=== PATIENT | female | born 1995 | race American Indian/Alaskan Native ===

== ENCOUNTER 2019-04-17 15:52 | Emergency (ER) | payer MEDICAID, OTHER ==
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
[2019-04-17 17:13] LABS: Basophils # (Auto) 0.1 K/mm3 (0.0-0.1); Basophils % (Auto) 1.1 % (0.0-1.8); Eosinophils # (Auto) 0.4 K/mm3 (0.0-0.4); Eosinophils % (Auto) 5.2 % (0.0-4.3); Hematocrit 42.6 % (30.3-42.9); Hemoglobin 14.3 gm/dl (10.1-14.3); Lymphocytes % (Auto) 36.9 % (13.4-35.0); Mean Corpuscular HGB Conc 34 % (30-34); Mean Corpuscular Volume 93 fl (79-97); Monocytes # (Auto) 0.6 K/mm3 (0.0-0.8); Monocytes % (Auto) 7.4 % (0.0-7.3); Platelet Count 374 K/mm3 (140-440); Red Blood Count 4.58 M/mm3 (3.65-5.03); Red Cell Distribution Width 13.3 % (13.2-15.2)
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
[2019-04-17 17:22] LABS: BUN/Creatinine Ratio 10; Blood Urea Nitrogen 6 mg/dL (7-17); Calcium 9.7 mg/dL (8.4-10.2); Hemolysis Index 8
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
[2019-04-17 20:01] VITALS: BP 109/70
== END 2019-04-17 20:00 | disposition home or self-care (01) ==
LOC: ED 15:52
DX: S46.911A Strain of unspecified muscle, fascia and tendon at shoulder and upper arm level, right arm, initial encounter (principal); S20.219A Contusion of unspecified front wall of thorax, initial encounter; F17.200 Nicotine dependence, unspecified, uncomplicated; Z91.018 Allergy to other foods; Z88.8 Allergy status to other drugs, medicaments and biological substances; Z86.69 Personal history of other diseases of the nervous system and sense organs; Z98.890 Other specified postprocedural states; Z79.899 Other long term (current) drug therapy; V49.59XA Passenger injured in collision with other motor vehicles in traffic accident, initial encounter; Y93.89 Activity, other specified; Y92.410 Unspecified street and highway as the place of occurrence of the external cause; Y99.8 Other external cause status
CPT/HCPCS: 36415; 71046; 71120; 80048; 84703; 85025

== ENCOUNTER 2020-10-10 05:25 | Emergency (ER) | payer MEDICAID, OTHER ==
[2020-10-10] MEDS ORDERED: KETOROLAC 30 MG/1 ML INJ IV ONE (06:24)
[2020-10-10 07:06] LABS: Basophils # (Auto) 0.1 K/mm3 (0.0-0.1); Basophils % (Auto) 0.9 % (0.0-1.8); Eosinophils # (Auto) 0.4 K/mm3 (0.0-0.4); Eosinophils % (Auto) 6.7 % (0.0-4.3); Hematocrit 41.2 % (30.3-42.9); Hemoglobin 14.1 gm/dl (10.1-14.3); Lymphocytes # (Auto) 2.9 K/mm3 (1.2-5.4); Lymphocytes % (Auto) 48.5 % (13.4-35.0); Mean Corpuscular HGB Conc 34 % (30-34); Mean Corpuscular Volume 92 fl (79-97); Monocytes # (Auto) 0.4 K/mm3 (0.0-0.8); Monocytes % (Auto) 6.7 % (0.0-7.3); Platelet Count 376 K/mm3 (140-440); Red Blood Count 4.46 M/mm3 (3.65-5.03); Red Cell Distribution Width 12.8 % (13.2-15.2)
[2020-10-10 07:38] VITALS: BP 124/83
[2020-10-10 07:40] LABS: Blood Urea Nitrogen 6 mg/dL (7-17); Calcium 9.2 mg/dL (8.4-10.2); Hemolysis Index 14
[2020-10-10 07:55] LABS: BUN/Creatinine Ratio 12
--- NOTE | 2020-10-10 09:18 | Cat Scan Report ---
CT NECK WITH CONTRAST HISTORY: Right-sided neck swelling COMPARISON: None. TECHNIQUE: Routine CT of the neck is performed following intravenous contrast. All CT scans at this [facility] are performed using CT dose reduction for ALARA by means of automated exposure control CONTRAST: 100 mL Omnipaque 300 FINDINGS: Artifacts related to breathing and motion obscuring the details in the oral cavity area. Skull Base: No significant abnormality. Parotid, Carotid, Retropharyngeal, Prevertebral, Pharyngeal Mucosal, and Physician Anesthesiologist Spaces: Faucial t onsils are prominent; no evidence of the inflammatory changes; airway is not compromised and no oral cavity Larynx: Artifacts obscuring the details Airway: Patent and without significant abnormality. Lymphatics: No lymphadenopathy. Vasculature: No significant abnormality. Osseous Structures: No significant abnormality Additional findings: 5 mm sized low attenuation lesion in the right thyroid lobe; nonspecific IMPRESSION: Limited CT scan due to artifacts from breathing and motion Airway is not compromised Incidental thyroid nodule measuring 0.5 cm located in right lobe. See below for follow-up recommendat ion. Nonpalpable nodules detected on US or other anatomic imaging studies are termed incidentally discover ed nodules or incidentalomas. Nonpalpable nodules have the same risk of malignancy as palpable nodule s with the same size. Generally, only nodules >1 cm should be evaluated, since they have a greater po tential to be clinically significant cancers. (FABRICE, 2009). Follow up for incidental thyroid nodules <1 cm is not recommended. Signer Name: Kain Willams MD Signed: 10/10/2020 9:12 AM Workstation Name: [id number]
--- NOTE | 2020-10-10 09:38 | Emergency Department Report ---
ED Neck Pain/Injury HPI - General Chief Complaint: Neck Pain/Injury Stated Complaint: LUMP IN NECK Time Seen by Provider: 10/10/20 06:24 Mode of arrival: Ambulatory Limitations: No Limitations - History of Present Illness Initial Comments: Patient is a 25-year-old F Tog[place] female who has had pain in the right neck for approximately a month. She was on prescription of amoxicillin previously given by her primary care physician. States she has a area of swelling to the right upper neck. Denies any pain palpation over teeth. She does have pain with turning her neck bending up and down. Denies fever or difficulty swallowing nausea vomiting cough cold or congestion. Severity scale (0 -10): 6 Quality: aching Consistency: constant Context: other (Denies any direct trauma or heavy lifting) - Related Data Previous Rx's Medication Instructions Recorded Last Taken Type Amoxicillin/K Clav Tab [Augmentin 1 tab PO Q12HR 14 Days tab 06/05/18 Unknown Rx 875 mg] Ibuprofen [Motrin] 600 mg PO Q8H PRN #30 tablet 06/05/18 Unknown Rx Pseudoephedrine HCl [Sudafed 12 120 mg PO BID #28 tablet.er 06/05/18 Unknown Rx Hour] Clindamycin [Clindamycin CAP] 300 mg PO Q8H #21 cap 10/10/20 Unknown Rx Ketorolac [Toradol] 10 mg PO Q6H PRN #14 tablet 10/10/20 Unknown Rx methOCARBAMOL [Robaxin TAB] 500 mg PO Q6H PRN #14 tablet 10/10/20 Unknown Rx traMADoL [Ultram] 50 mg PO Q6HR PRN #12 tablet 10/10/20 Unknown Rx Allergies Allergy/AdvReac Type Severity Reaction Status Date / Time strawberry Allergy Hives Verified 10/10/20 05:46 gabapentin AdvReac Vomiting Verified 10/10/20 05:46 methylprednisolone AdvReac Vomiting Verified 10/10/20 05:46 [From Solu-Medrol] ED Review of Systems ROS: Stated complaint: LUMP IN NECK Other details as noted in HPI Comment: All other systems reviewed and negative ED Past Medical Hx - Past Medical History Previous Medical History?: Yes Hx Psychiatric Treatment: Yes (depression, anxiety) Additional medical history: SCOLIOSIS - Surgical History Past Surgical History?: Yes Hx Cholecystectomy: Yes Additional Surgical History: spinal tap - Social History Smoking Status: Never Smoker Substance Use Type: None - Medications Home Medications: Home Medications Medication Instructions Recorded Confirmed Last Taken Type Amoxicillin/K Clav Tab [Augmentin 1 tab PO Q12HR 14 Days tab 06/05/18 Unknown Rx 875 mg] Ibuprofen [Motrin] 600 mg PO Q8H PRN #30 tablet 06/05/18 Unknown Rx Pseudoephedrine HCl [Sudafed 12 120 mg PO BID #28 tablet.er 06/05/18 Unknown Rx Hour] Clindamycin [Clindamycin CAP] 300 mg PO Q8H #21 cap 10/10/20 Unknown Rx Ketorolac [Toradol] 10 mg PO Q6H PRN #14 tablet 10/10/20 Unknown Rx methOCARBAMOL [Robaxin TAB] 500 mg PO Q6H PRN #14 tablet 10/10/20 Unknown Rx traMADoL [Ultram] 50 mg PO Q6HR PRN #12 tablet 10/10/20 Unknown Rx ED Physical Exam - General Limitations: No Limitations General appearance: alert, in no apparent distress - Head Head exam: Present: atraumatic, normocephalic - Eye Eye exam: Present: normal appearance, PERRL, EOMI - ENT ENT exam: Present: normal orophraynx, mucous membranes moist - Neck Neck exam: Present: normal inspection - Expanded Neck Exam Expanded 1 - Area of very mild swelling just under the jaw on the right approximately 2 cm distal to the angle of the jaw 2 - Tenderness to palpation of the entire sternocleidomastoid - Respiratory Respiratory exam: Present: normal lung sounds bilaterally. Absent: respiratory distress, wheezes, rales, rhonchi, stridor - Cardiovascular Cardiovascular Exam: Present: regular rate, normal rhythm. Absent: systolic murmur, diastolic murmur, rubs, gallop - GI/Abdominal GI/Abdominal exam: Present: soft, normal bowel sounds - Extremities Exam Extremities exam: Present: normal inspection - Back Exam Back exam: Present: normal inspection - Neurological Exam Neurological exam: Present: alert, oriented X3 - Psychiatric Psychiatric exam: Present: normal affect, normal mood - Skin Skin exam: Present: warm, dry, intact, normal color. Absent: rash ED Course Vital Signs 10/10/20 10/10/20 05:40 07:37 Temperature 98.8 F 98.2 F Pulse Rate 85 76 Respiratory 18 14 Rate Blood Pressure 148/82 124/83 [Left] O2 Sat by Pulse 98 98 Oximetry ED Medical Decision Making - Lab Data Result diagrams: 10/10/20 06:44 10/10/20 06:44 - Radiology Data [facility] [address] [place] [address] Cat Scan Report Signed Patient: JANIE ADAMES MR#: [id number] : 1995 Acct:[id number] Age/Sex: 25 / F ADM Date: 10/10/20 Loc: ED Attending Dr: Ordering Physician: MODESTO DAUGHERTY MD Date of Service: 10/10/20 Procedure(s): CT neck w con Accession Number(s): [id number] cc: MODESTO DAUGHERTY MD CT NECK WITH CONTRAST HISTORY: Right-sided neck swelling COMPARISON: None. TECHNIQUE: Routine CT of the neck is performed following intravenous contrast. All CT scans at this location are performed using CT dose reduction for ALARA by means of automated exposure control CONTRAST: 100 mL Omnipaque 300 FINDINGS: Artifacts related to breathing and motion obscuring the details in the oral cavity area. Skull Base: No significant abnormality. Parotid, Carotid, Retropharyngeal, Prevertebral, Pharyngeal Mucosal, and Paper Tube Grader Spaces: Faucial tonsils are prominent; no evidence of the inflammatory changes; airway is not compromised and no oral cavity Larynx: Artifacts obscuring the details Airway: Patent and without significant abnormality. Lymphatics: No lymphadenopathy. Vasculature: No significant abnormality. Osseous Structures: No significant abnormality Additional findings: 5 mm sized low attenuation lesion in the right thyroid lobe; nonspecific IMPRESSION: Limited CT scan due to artifacts from breathing and motion Airway is not compromised Incidental thyroid nodule measuring 0.5 cm located in right lobe. See below for follow-up recommendation. Nonpalpable nodules detected on US or other anatomic imaging studies are termed incidentally discovered nodules or incidentalomas. Nonpalpable nodules have the same risk of malignancy as palpable nodules with the same size. Generally, only nodules >1 cm should be evaluated, since they have a greater potential to be clinically significant cancers. (FABRICE, 2009). Follow up for incidental thyroid nodules <1 cm is not recommended. Signer Name: Kain Willams MD Signed: 10/10/2020 9:12 AM Workstation Name: [id number] Transcribed By: BS - Medical Decision Making Patient is a 25-year-old F Togolese female has had pain in the right neck anterior for approximately a month. There is a palpable masslike structure very small in the right jaw. This could represent dental abscess with some mild facial cellulitis. Difficult to see the patient is teeth and lower cavities on the CT because of some motion artifact. Patient also has pain with palpation to the entire right sternocleidomastoid. No inflammatory changes on CT. Patient will be referred to oral surgery. She also be given a muscle relaxant and something for pain. Patient has ultrasound of the right neck pending which she can keep this appointment. Patient stable for discharge. Critical care attestation.: If time is entered above; I have spent that time in minutes in the direct care of this critically ill patient, excluding procedure time. ED Disposition Clinical Impression: Neck pain, Dental abscess, Sternocleidomastoid muscle tenderness Disposition: 01 HOME / SELF CARE / HOMELESS Is pt being admited?: No Does the pt Need Aspirin: No Condition: Stable Instructions: Dental Abscess, Musculoskeletal Pain Referrals: DOUGIE ESCOBEDO DDS [Referring] - 3-5 Days MARY BERMAN DDS [Staff Physician] - 3-5 Days Time of Disposition: 09:39
== END 2020-10-10 10:08 | disposition home or self-care (01) ==
LOC: ED 05:25
DX: M54.2 Cervicalgia (principal); K04.7 Periapical abscess without sinus; Z88.8 Allergy status to other drugs, medicaments and biological substances; Z91.018 Allergy to other foods
CPT/HCPCS: 36415; 70491; 80048; 85025; 96374; 99284; J1885; Q9967